=== PATIENT | female | born 1955 | race Caucasian/White ===

== ENCOUNTER 2019-02-20 06:16 | Inpatient (IN) | payer MEDICAID, OTHER ==
[2019-02-20] VITALS (28 sets, daily range): BP systolic 80–122; BP diastolic 28–54
[~2019-02-20] VITALS: Ht 172.7 cm; Wt 84.2 kg
[~2019-02-20 06:16] MED LIST: DOBUTamine/D5W 500mg/250ml premix IV ONE; NORepinephrine 8 MG in NS 250 ML BAG (32 mcg/ml) IV ONE
[2019-02-20 06:49] LABS: BASOPHILS % (AUTO) 0.2 % (0-1); EOSINOPHILS # (AUTO) 0.1 X10'3 (0-0.9); EOSINOPHILS % (AUTO) 1.5 % (0-6); HEMATOCRIT 28.8 % (35.0-45.0); HEMOGLOBIN 9.3 g/dl (12.0-16.0); LYMPHOCYTES # (AUTO) 0.4 X10'3 (1.1-4.8); LYMPHOCYTES % (AUTO) 5.3 % (21-51); MEAN CORPUSCULAR HEMOGLOBIN 27.8 PG (27.0-31.0); MEAN CORPUSCULAR HGB CONC 32.2 g/dL (33.0-36.5); MEAN CORPUSCULAR VOLUME 86.6 FL (78-98); MEAN PLATELET VOLUME 8.9 FL (7.4-10.4); MONOCYTES # (AUTO) 0.7 X10'3 (0-0.9); MONOCYTES % (AUTO) 9.8 % (2-12); NEUTROPHILS # (AUTO) 5.5 X10'3 (1.8-7.7); NEUTROPHILS % (AUTO) 83.2 % (42-75); PLATELET COUNT 114 X10'3 (140-440); RED BLOOD COUNT 3.33 X10'6 (4.20-5.60); RED CELL DISTRIBUTION WIDTH 15.9 % (11.5-14.5); WHITE BLOOD COUNT 6.7 X10'3 (4.5-11.0)
[2019-02-20 06:50] LABS: ABG BASE EXCESS -10.3 mmol/L (-2.0-3.0); ABG HCO3 15.3 mmol/L (22.0-26.0); ABG PCO2 (T) 33.1 mmHg (35.0-45.0); ABG PH (T) 7.284 (7.350-7.450); ABG PO2 (T) 252.3 mmHg (83-108); FCOHb 0.2 % (0.5-1.5); FMetHb 0.3 % (0.3-1.12); FO2Hb 98.5 % (94-100); MINUTE VOLUME 14 L/min; PATIENT TEMPERATURE 37.2; RESPIRATORY RATE 16 b/min; RESPIRATORY RATE (OBSERVED) 19 b/min; TIDAL VOLUME 773 mL; TOTAL HEMOGLOBIN 10.2 G/dl (12.0-16.0)
[2019-02-20 07:12] LABS: PARTIAL THROMBOPLASTIN TIME 51 SECONDS (22-32)
[2019-02-20] MEDS ORDERED: calcium gluconate inj. 1 GM in normal saline 100ml IV soln 100 ML IV ONE (07:15)
[2019-02-20] MEDS ORDERED: sodium bicarbonate (0.9mEq/ml) 44.6 mEq/50ml syringe IV ONE (07:15)
[2019-02-20 07:27] LABS: LACTIC SEPSIS 6.1 MMOL/L (0.4-2.0)
[2019-02-20 07:31] LABS: ALBUMIN 3.5 G/DL (3.4-5.0); ALBUMIN/GLOBULIN RATIO 1.3 (1.1-1.5); ALKALINE PHOSPHATASE 163 IU/L (46-116); ANION GAP 18 (8-16); BILIRUBIN,TOTAL 2.9 MG/DL (0.1-1.0); BLOOD UREA NITROGEN 95 MG/DL (7-18); BUN/CREATININE RATIO 21.7 (6.6-38.0); CHLORIDE 91 MMOL/L (99-107); CREATININE 4.37 MG/DL (0.40-0.90); GLUCOSE 164 MG/DL (70-104); LIPASE 172 U/L (73-393); MAGNESIUM 1.9 MG/DL (1.5-2.4); SODIUM 127 MMOL/L (135-145); TOTAL CARBON DIOXIDE 18.3 MMOL/L (24-32); TOTAL PROTEIN 6.2 G/DL (6.4-8.2); eGFR 10 ML/MIN
--- NOTE | 2019-02-20 07:52 | NUR ---
WAITING PHARMACY FOR BICARB
[2019-02-20 08:18] LABS: NUCLEATED RED BLOOD CELLS 10 /100WBC (0-0); TOTAL CELLS COUNTED 100
[2019-02-20 08:19] LABS: PLATELET ESTIMATE DECREASED
--- NOTE | 2019-02-20 08:19 | NUR ---
DR. CHERY IN TO SEE PT FOR ADMIT. VERBAL ORDERS RECIEVED FOR CANCOMYCIN 1GRAM IV, ZOSYN 3.375MG IV, AND DOBUTAMINE DRIP PER PROTOCOL.
[2019-02-20 08:20] LABS: ANISOCYTOSIS 1+
--- NOTE | 2019-02-20 08:20 | NUR ---
DR. VILLAR BEDSIDE FOR CL NOW.
[2019-02-20] MEDS ORDERED: DOBUTamine-DoBUTrex 500mg/D5W 250 ML IV PRN (08:30)
[2019-02-20] MEDS ORDERED: vancomycin/NS 1 GM ADD-VANTAGE 250 ML IV ONE (08:30)
[2019-02-20 08:32] LABS: ACETAMINOPHEN < 2.0 UG/ML (10-30); ALANINE AMINOTRANSFERASE 3599 U/L (12-78); ASPARTATE AMINO TRANSFERASE 3477 U/L (10-37); CREATINE KINASE 8185 U/L (26-192)
[2019-02-20 08:34] LABS: POTASSIUM 6.3 MMOL/L (3.5-5.1)
[2019-02-20] MEDS ORDERED: piperacillin/tazo 3.375gm/50ml 50 ML IV ONE ×2 (08:40→16:00)
[2019-02-20] MEDS: DOBUTamine-DoBUTrex 500mg/D5W 250 ML IV PRN ×2 (09:23→20:25)
[2019-02-20] MEDS ORDERED: magnesium 4gm in 100ml NS 100 ML IV PRN (09:40)
[2019-02-20] MEDS ORDERED: sodium phosphate inj. 15 MMOL in dextrose 5%-water 150 ML IV PRN (09:40)
[2019-02-20] MEDS ORDERED: morphine 4 MG/ML inj SYRINge IV PRN (09:40)
[2019-02-20] MEDS ORDERED: Neutra Phos packet PO PRN (09:40)
[2019-02-20] MEDS ORDERED: magnesium Cl slow-release 64mg tablet PO PRN (09:40)
[2019-02-20] MEDS ORDERED: magnesium 2GM in 50ml NS 50 ML IV PRN (09:40)
[2019-02-20] MEDS ORDERED: sodium phosphate inj. 30 MMOL in dextrose 5%-water 250 ML IV PRN (09:40)
[2019-02-20] MEDS ORDERED: ketamine 10mg/ml 20ml inj 25 MG in normal saline 100ml IV soln 100.0 ML IV ONE (09:45)
[2019-02-20 09:46] LABS: CLARITY,URINE CLOUDY (Clear); COLOR,URINE YELLOW (Yellow); GLUCOSE, URINE NEGATIVE (Neg); KETONES,URINE TRACE mg/dl (Neg); LEUKOCYTE ESTERASE ,URINE NEGATIVE (Neg); NITRITES, URINE NEGATIVE (Neg); OCCULT BLOOD,URINE LARGE (Neg); PROTEIN,URINE >=300 mg/dl (Neg)
[2019-02-20 09:52] LABS: UA COLLECTION TYPE FOLEY CATH
[2019-02-20 09:53] LABS: SQUAMOUS EPITHELIAL CELL,UR MANY /LPF (FEW)
[2019-02-20] MEDS: normal saline 1000ml 1,000 ML IV SCH (09:53)
[2019-02-20 09:54] LABS: RBC,URINE 20-50 /HPF (0-2)
[2019-02-20 09:55] LABS: HYALINE CASTS 0-3 /LPF (NEGATIVE); TRANSITIONAL EPI CELLS,URINE MANY /HPF
[2019-02-20 09:56] LABS: AMORPHOUS URATES 2+; BACTERIA,URINE 1+ /HPF (Neg); WBC,URINE 0-4 /HPF (0-4)
[2019-02-20] MEDS ORDERED: normal saline 1000ML IV soln IVB ONE ×2 (10:00→12:40)
[2019-02-20] MEDS ORDERED: VANCOmycin 1250MG/NS 250ml Bag 250 ML IV ONE (10:05)
[2019-02-20 10:35] LABS: ABG BASE EXCESS -9.2 mmol/L (-2.0-3.0); ABG HCO3 15.6 mmol/L (22.0-26.0); ABG OXYGEN SATURATION 96.2 % (95-98); ABG PCO2 (T) 30.2 mmHg (35.0-45.0); ABG PH (T) 7.332 (7.350-7.450); ABG PO2 (T) 100.9 mmHg (83-108); FCOHb 0.3 % (0.5-1.5); FMetHb 0.2 % (0.3-1.12); FO2Hb 95.7 % (94-100); MINUTE VOLUME 15 L/min; RESPIRATORY RATE 16 b/min; TOTAL HEMOGLOBIN 9.3 G/dl (12.0-16.0)
[2019-02-20] MEDS: pantoprazole 40 MG vial IV SCH (10:48)
--- NOTE | 2019-02-20 11:03 | NUR ---
PT CHANGED TO HI FLOW NC BY RT AT THIS TIME. 10L SAO2 AT 94%
[2019-02-20] MEDS ORDERED: vancomycin/NS 1 GM ADD-VANTAGE 250 ML IV PRN (11:50)
[2019-02-20] MEDS ORDERED: HYDR-3686 PO ×2 (12:10→12:59)
[2019-02-20] MEDS ORDERED: OMEP-50 PO (12:10)
[2019-02-20] MEDS ORDERED: METH750T3 PO (12:10)
[2019-02-20] MEDS ORDERED: ATOR40TA72 PO (12:10)
[2019-02-20] MEDS ORDERED: DULO60CA65 PO (12:10)
[2019-02-20] MEDS ORDERED: NAPR-996 PO (12:10)
[2019-02-20] MEDS ORDERED: METF-438 PO (12:10)
[2019-02-20] MEDS ORDERED: RANI300T4 PO (12:10)
[2019-02-20] MEDS ORDERED: BUPR-84 PO (12:10)
[2019-02-20] MEDS ORDERED: MULT-955 PO (12:59)
[2019-02-20] MEDS ORDERED: OXYC-150 PO (12:59)
[2019-02-20] MEDS ORDERED: ASPI-611 PO (12:59)
[2019-02-20] MEDS ORDERED: METO-395 PO (12:59)
[2019-02-20] MEDS ORDERED: DOCU-148 PO (12:59)
[2019-02-20] MEDS ORDERED: LIDO700A32 TOP (12:59)
[2019-02-20] MEDS ORDERED: CLOT12CR TOP (12:59)
[2019-02-20] MEDS ORDERED: FURO-150 PO (12:59)
[2019-02-20] MEDS ORDERED: TOPI50TA PO (12:59)
[2019-02-20] MEDS ORDERED: OXYC10TA47 PO (12:59)
--- NOTE | 2019-02-20 13:08 | NUR ---
WRONG PATIENT. PLEASE DISREGARD Addendum: 02/20/19 at 1309 by Anitha TAYLOR RN Amended: Links added.
[2019-02-20] MEDS ORDERED: NORepinephrine 8mg/ 250ml NS 250 ML IV PRN (13:49)
[2019-02-20] MEDS ORDERED: furosemide 40mg/4ml inj IV ONE ×3 (13:50→22:30)
[2019-02-20] MEDS ORDERED: albuterol 2.5 MG/3 ML nebule CONTNEB PRN (13:50)
[2019-02-20] MEDS ORDERED: sodium bicarbonate (8.4%) 1 mEq/ml syringe IV ONE (13:50)
[2019-02-20] MEDS ORDERED: NORepinephrine 8mg/ 250ml NS 250 ML IV ONE (13:53)
[2019-02-20 14:01] LABS: ABG BASE EXCESS -5.9 mmol/L (-2.0-3.0); ABG HCO3 19.9 mmol/L (22.0-26.0); ABG OXYGEN SATURATION 89.9 % (95-98); ABG PCO2 (T) 40.5 mmHg (35.0-45.0); ABG PO2 (T) 66.5 mmHg (83-108); ALLEN'S TEST Positive; FCOHb 0.3 % (0.5-1.5); FLOW 10 L/min; FMetHb 0.3 % (0.3-1.12); FO2Hb 89.4 % (94-100); TOTAL HEMOGLOBIN 9.1 G/dl (12.0-16.0)
[2019-02-20] MEDS: NORepinephrine 8mg/ 250ml NS 250 ML IV SCH (14:19)
[2019-02-20] MEDS ORDERED: sodium bicarbonate (8.4%) inj. 1 MEQ/ML ML IV ONE (14:35)
[2019-02-20] MEDS: ondansetron/PF 4mg/2ml inj IV PRN (14:37)
[2019-02-20] MEDS: methylPREDNISolone sod succ/PF 40mg inj. IV SCH ×2 (14:37→19:46)
[2019-02-20 15:46] LABS: ALBUMIN/GLOBULIN RATIO 1.4 (1.1-1.5); ALKALINE PHOSPHATASE 138 IU/L (46-116); ANION GAP 14 (8-16); BLOOD UREA NITROGEN 90 MG/DL (7-18); BUN/CREATININE RATIO 21.3 (6.6-38.0); CALCIUM 6.4 MG/DL (8.5-10.1); CHLORIDE 96 MMOL/L (99-107); CREATININE 4.23 MG/DL (0.40-0.90); GLUCOSE 106 MG/DL (70-104); POTASSIUM 5.6 MMOL/L (3.5-5.1); SODIUM 131 MMOL/L (135-145); TOTAL CARBON DIOXIDE 21.1 MMOL/L (24-32); TOTAL PROTEIN 5.2 G/DL (6.4-8.2); eGFR 11 ML/MIN
[2019-02-20 15:55] LABS: ALANINE AMINOTRANSFERASE 3028 U/L (12-78)
[2019-02-20 15:56] LABS: ASPARTATE AMINO TRANSFERASE 2619 U/L (10-37)
--- NOTE | 2019-02-20 17:01 | NUR ---
Pt's ring to L-finger sent to MIKE patino with pt's permission.
--- NOTE | 2019-02-20 18:45 | NUR ---
Patient in room ICU 2042. I have received report and had the opportunity to ask questions and assume patient care. Pt received confused. Reoriented. Rhythm is sinus HR 74 Dobutamine drip is infusing at 10mcg. BP supported with Levophed drip. medication titrated up at this time. CVP 17. Pt is on oxygen at 10 liters NC high flow.Burden drains dark yellow urine.
--- NOTE | 2019-02-20 19:30 | NUR ---
Aerobic Blood Cultures positive for G+ cocci in pairs/chains. Elli Lorenzo updated. Pt is receiving vancomycin.
[2019-02-20] MEDS: cefepime 1GM in D5W 50mL 50 ML IV SCH (19:41)
[2019-02-20] MEDS: lactobacillus rhamnosus 10,000 MMU CELLS/CAPSULE PO SCH (20:00)
--- NOTE | 2019-02-20 23:00 | NUR ---
Right IJ central line found pulled. Pt with fingers around tubing. Sutures remain intact to device & skin however line is clearly out. Bleeding noted, line D/C'd intact. Dressing applied to right neck. Elli Lorenzo aware & at bedside. # 18G peripheral IV line started in left AC. Left neck saline lock accessed for Levophed, line with immediate blood return.
[2019-02-21] VITALS (24 sets, daily range): BP systolic 101–125; BP diastolic 44–59
[2019-02-21] MEDS: normal saline 1000ml 1,000 ML IV SCH ×2 (01:04→16:01)
[2019-02-21] MEDS: NORepinephrine 8mg/ 250ml NS 250 ML IV SCH ×2 (01:22→16:00)
[2019-02-21] MEDS: methylPREDNISolone sod succ/PF 40mg inj. IV SCH ×4 (01:24→19:57)
[2019-02-21 02:29] LABS: BASOPHILS % (AUTO) 0 % (0-1); EOSINOPHILS % (AUTO) 0.1 % (0-6); HEMATOCRIT 25.2 % (35.0-45.0); HEMOGLOBIN 8.2 g/dl (12.0-16.0); LYMPHOCYTES # (AUTO) 0.1 X10'3 (1.1-4.8); LYMPHOCYTES % (AUTO) 2.6 % (21-51); MEAN CORPUSCULAR HEMOGLOBIN 27.5 PG (27.0-31.0); MEAN CORPUSCULAR HGB CONC 32.5 g/dL (33.0-36.5); MEAN CORPUSCULAR VOLUME 84.5 FL (78-98); MEAN PLATELET VOLUME 8.5 FL (7.4-10.4); MONOCYTES # (AUTO) 0.2 X10'3 (0-0.9); MONOCYTES % (AUTO) 3.6 % (2-12); NEUTROPHILS # (AUTO) 4.1 X10'3 (1.8-7.7); NEUTROPHILS % (AUTO) 93.7 % (42-75); PLATELET COUNT 90 X10'3 (140-440); RED BLOOD COUNT 2.98 X10'6 (4.20-5.60); RED CELL DISTRIBUTION WIDTH 15.6 % (11.5-14.5); WHITE BLOOD COUNT 4.4 X10'3 (4.5-11.0)
[2019-02-21 02:39] LABS: PARTIAL THROMBOPLASTIN TIME 56 SECONDS (22-32)
[2019-02-21 02:51] LABS: ALANINE AMINOTRANSFERASE 2689 U/L (12-78); ALBUMIN 2.9 G/DL (3.4-5.0); ALBUMIN/GLOBULIN RATIO 1.3 (1.1-1.5); ALKALINE PHOSPHATASE 133 IU/L (46-116); ANION GAP 13 (8-16); ASPARTATE AMINO TRANSFERASE 2121 U/L (10-37); BILIRUBIN,TOTAL 3.7 MG/DL (0.1-1.0); BLOOD UREA NITROGEN 96 MG/DL (7-18); BUN/CREATININE RATIO 22.9 (6.6-38.0); CHLORIDE 98 MMOL/L (99-107); CREATINE KINASE 4911 U/L (26-192); GLUCOSE 137 MG/DL (70-104); MAGNESIUM 1.6 MG/DL (1.5-2.4); PHOSPHORUS 5.6 MG/DL (2.3-4.5); POTASSIUM 5.5 MMOL/L (3.5-5.1); SODIUM 133 MMOL/L (135-145); TOTAL CARBON DIOXIDE 22.2 MMOL/L (24-32); TOTAL PROTEIN 5.2 G/DL (6.4-8.2); VANCOMYCIN,RANDOM 8.7 UG/ML; eGFR 11 ML/MIN
[2019-02-21 02:55] LABS: BANDS% (MANUAL) 24 % (0-10); ELLIPTOCYTES FEW; HYPOCHROMASIA 1+; LYMPHOCYTES % (MANUAL) 2 % (21-51); MONOCYTES % (MANUAL) 2 % (2-12); NEUTROPHILS % (MANUAL) 69 % (42-75); NUCLEATED RED BLOOD CELLS 1 /100WBC (0-0); PLATELET ESTIMATE DECREASED; REACTIVE LYMPHOCYTES % 2 % (0-0); TOTAL CELLS COUNTED 100
--- NOTE | 2019-02-21 02:55 | NUR ---
Abnormal lab results called to Elli Lorenzo. No new orders at this time.
[2019-02-21 02:56] LABS: ROULEAUX 1+
[2019-02-21] MEDS: VANCOMYCIN LEVEL IV SCH (03:00)
[2019-02-21] MEDS: DOBUTamine-DoBUTrex 500mg/D5W 250 ML IV PRN ×2 (04:57→15:59)
--- NOTE | 2019-02-21 06:30 | NUR ---
Patient in room ICU 2042. I have received report from taran and had the opportunity to ask questions and assume patient care.
[2019-02-21] MEDS ORDERED: vancomycin/NS 1 GM ADD-VANTAGE 250 ML IV ONE (06:35)
--- NOTE | 2019-02-21 06:35 | NUR ---
Problems reprioritized. Patient report given, questions answered & plan of care reviewed. Addendum: 02/21/19 at 1514 by Mariana Mora RN Patient in room ICU 2042. I have received report from taran and had the opportunity to ask questions and assume patient care.
[2019-02-21] MEDS: cefepime 1GM in D5W 50mL 50 ML IV SCH ×2 (08:16→19:57)
[2019-02-21] MEDS: pantoprazole 40 MG vial IV SCH (08:19)
[2019-02-21] MEDS: lactobacillus rhamnosus 10,000 MMU CELLS/CAPSULE PO SCH (08:20)
[2019-02-21] MEDS ORDERED: glucagon, human recombinant 1mg kit SUBCUT PRN (08:35)
[2019-02-21] MEDS ORDERED: dextrose ORAL solution 15 GM/59 ML bottle PO PRN ×2 (08:35)
[2019-02-21] MEDS ORDERED: dextrose 50%-water 50ml dispensing syringe IV PRN ×2 (08:35)
--- NOTE | 2019-02-21 09:00 | NUR ---
confused as to place, time, knows medical history. update to and dil by phone
[2019-02-21] MEDS ORDERED: TERB30CR22 TP (10:53)
[2019-02-21] MEDS: insulin Lispro (HumaLOG) vial - multi-dose SQ SCH ×2 (11:01→15:33)
--- NOTE | 2019-02-21 14:07 | NUR ---
Nutrition consult (02/21):Pt is admitted to the unit with dx of TED,cardiogenic shock, and liver failure. According to physical hx, pt has a history of Afib,DM2 and HTN. In view of pt's TED, nutrition education is not needed at this time. Will follow per protocol for any additional needs. Recommendation: 1.Continue renal/carb controlled diet 2.Weekly wt Addendum: 02/21/19 at [address] Amended: Links added. Addendum: 02/21/19 at [address] SMITA agree with note
[2019-02-21] MEDS ORDERED: OXYC-150 PO ×2 (14:58→15:00)
--- NOTE | 2019-02-21 15:14 | NUR ---
picc line in. pt dangled with pt- tolerated fair.
[2019-02-21] MEDS: levoTHYROXINE 25mcg tablet PO SCH (15:36)
--- NOTE | 2019-02-21 18:05 | NUR ---
iv lines changed. pt more coherent now.
--- NOTE | 2019-02-21 18:20 | NUR ---
Patient in room ICU 2042. I have received report and had the opportunity to ask questions and assume patient care. Pt is awake & alert, confused. Currently on 3 liters oxygen via NC saturating 96%. Levophed at 2mcg. infusing via PICC line left upper arm. Safety precautions observed bilateral soft wrist restraints secure. No distress at this time.
--- NOTE | 2019-02-21 19:30 | NUR ---
Pt refused diner tray. Appetite is poor.
[2019-02-21] MEDS: insulin glargine (Lantus) pen - multi-dose SQ SCH (21:37)
[2019-02-22] VITALS (24 sets, daily range): BP systolic 112–143; BP diastolic 48–69
[2019-02-22] MEDS: ipratropium/albuterol 3ml nebule NEB PRN (01:27)
--- NOTE | 2019-02-22 01:30 | NUR ---
Pt removed nasal cannula. Saturation in 80's on room air. Pt yelling she can not breathe. Placed on oxygen mask at 6Liters with saturation 99%. Respiratory therapist notified for breathing treatment. Lungs with coarse breath sounds. Loose non productive cough.
[2019-02-22] MEDS: DOBUTamine-DoBUTrex 500mg/D5W 250 ML IV PRN ×3 (01:46→21:31)
[2019-02-22] MEDS: methylPREDNISolone sod succ/PF 40mg inj. IV SCH ×4 (02:12→20:16)
[2019-02-22] MEDS: VANCOMYCIN LEVEL IV SCH ×2 (02:16→21:33)
[2019-02-22 02:23] LABS: BASOPHILS % (AUTO) 0.2 % (0-1); EOSINOPHILS % (AUTO) 0.1 % (0-6); HEMATOCRIT 24.8 % (35.0-45.0); HEMOGLOBIN 8.1 g/dl (12.0-16.0); LYMPHOCYTES # (AUTO) 0.2 X10'3 (1.1-4.8); LYMPHOCYTES % (AUTO) 2.5 % (21-51); MEAN CORPUSCULAR HEMOGLOBIN 27.4 PG (27.0-31.0); MEAN CORPUSCULAR HGB CONC 32.8 g/dL (33.0-36.5); MEAN CORPUSCULAR VOLUME 83.6 FL (78-98); MEAN PLATELET VOLUME 8.2 FL (7.4-10.4); MONOCYTES # (AUTO) 0.2 X10'3 (0-0.9); MONOCYTES % (AUTO) 2.9 % (2-12); NEUTROPHILS % (AUTO) 94.3 % (42-75); PLATELET COUNT 81 X10'3 (140-440); RED BLOOD COUNT 2.97 X10'6 (4.20-5.60); RED CELL DISTRIBUTION WIDTH 15.6 % (11.5-14.5); WHITE BLOOD COUNT 6.4 X10'3 (4.5-11.0)
[2019-02-22 02:41] LABS: PARTIAL THROMBOPLASTIN TIME 49 SECONDS (22-32)
--- NOTE | 2019-02-22 03:00 | NUR ---
O2 saturation 99%. Pt now on high flow nasal cannula at 6L. No distress.
[2019-02-22 03:04] LABS: ALBUMIN 2.6 G/DL (3.4-5.0); ALKALINE PHOSPHATASE 121 IU/L (46-116); ANION GAP 7 (8-16); BILIRUBIN,TOTAL 4.1 MG/DL (0.1-1.0); BLOOD UREA NITROGEN 90 MG/DL (7-18); BUN/CREATININE RATIO 28.8 (6.6-38.0); CALCIUM 7.6 MG/DL (8.5-10.1); CHLORIDE 102 MMOL/L (99-107); CREATININE 3.13 MG/DL (0.40-0.90); GLUCOSE 137 MG/DL (70-104); MAGNESIUM 1.6 MG/DL (1.5-2.4); POTASSIUM 3.1 MMOL/L (3.5-5.1); SODIUM 138 MMOL/L (135-145); TOTAL CARBON DIOXIDE 28.7 MMOL/L (24-32); TOTAL PROTEIN 5.2 G/DL (6.4-8.2); VANCOMYCIN,RANDOM 12.7 UG/ML; eGFR 15 ML/MIN
[2019-02-22 03:16] LABS: ALANINE AMINOTRANSFERASE 2030 U/L (12-78); ASPARTATE AMINO TRANSFERASE 1049 U/L (10-37)
--- NOTE | 2019-02-22 03:34 | NUR ---
Abnormal labs called to Elli Lorenzo. Awaiting further orders. K+ 3.1 BUN/Creatinine are trending down. Platelets 81.
[2019-02-22] MEDS ORDERED: potassium Cl 10 mEq/100mL bag IV ONE (03:40)
--- NOTE | 2019-02-22 06:35 | NUR ---
Problems reprioritized. Patient report given, questions answered & plan of care reviewed.
--- NOTE | 2019-02-22 06:40 | NUR ---
Patient in room ICU 2042. I have received report from Denise. KRISTEN and had the opportunity to ask questions and assume patient care.
[2019-02-22] MEDS ORDERED: vancomycin/NS 1 GM ADD-VANTAGE 250 ML IV ONE (07:00)
[2019-02-22] MEDS: morphine 2 MG/ML inj. syringe IV PRN (08:31)
[2019-02-22] MEDS: levoTHYROXINE 25mcg tablet PO SCH (08:35)
[2019-02-22] MEDS: pantoprazole 40 MG vial IV SCH (08:50)
[2019-02-22] MEDS: insulin Lispro (HumaLOG) vial - multi-dose SQ SCH ×2 (09:23→16:36)
[2019-02-22] MEDS: cefepime 1GM in D5W 50mL 50 ML IV SCH ×2 (10:52→20:16)
[2019-02-22] MEDS ORDERED: oxyCODONE/APAP 10/325mg tablet PO ONE (14:25)
--- NOTE | 2019-02-22 15:09 | NUR ---
restraints removed. Pt sitting up to chair, alert and oriented, speaking clearly, wide awake, family at bedside.
--- NOTE | 2019-02-22 15:53 | NUR ---
pts K 3.1 around 0200 this AM. A one time dose of Potassium 10 mEq IV given @ 0356. RN rechecked K this afternoon and level was 2.6. No PRNs ordered. Cristel Kauffman notified and ordered for K20 mEq to be given once. Order placed, will administer.
[2019-02-22] MEDS ORDERED: potassium Cl 20 mEq/100mL bag IV ONE (15:55)
--- NOTE | 2019-02-22 18:15 | NUR ---
Patient in room ICU 2042. I have received report from had the opportunity to ask questions and assume patient care. Pt received awake & alert sitting up in chair with visitors at bedside. No distress.
--- NOTE | 2019-02-22 19:15 | NUR ---
BS 149, dinner now started. Pt declined meal earlier.
[2019-02-22] MEDS ORDERED: hydrOXYzine 25 MG tablet PO PRN (19:55)
[2019-02-22] MEDS: oxyCODONE/APAP 10/325mg tablet PO SCH (20:15)
[2019-02-22] MEDS: lactobacillus rhamnosus 10,000 MMU CELLS/CAPSULE PO SCH (20:16)
[2019-02-22] MEDS: insulin glargine (Lantus) pen - multi-dose SQ SCH (20:32)
--- NOTE | 2019-02-22 21:12 | NUR ---
K+2.8 result called to Medhat. Awaiting orders. Rhythm is sinus without ectopy.
--- NOTE | 2019-02-22 21:30 | NUR ---
Assisted back to bed. Pt is able to stand, bear weight and take steps. CHG bath/Burden care rendered. Bed linen / gown changed.
[2019-02-22] MEDS: famotidine 20mg tablet PO SCH (21:31)
[2019-02-22] MEDS: potassium Cl 20mEq/100mL bag 100 ML IV PRN (21:40)
[2019-02-22] MEDS: buPROPion SR 150mg tablet PO SCH (21:47)
--- NOTE | 2019-02-22 23:00 | NUR ---
White/pale yellow tissue noted on pt.'s tongue right side & under tongue. Denies pain to these areas. Elli Lorenzo at bedside to assess.
[2019-02-23] VITALS (16 sets, daily range): BP systolic 122–143; BP diastolic 57–77
[2019-02-23] MEDS: methylPREDNISolone sod succ/PF 40mg inj. IV SCH ×4 (01:26→21:01)
[2019-02-23] MEDS: normal saline 1000ml 1,000 ML IV SCH (01:28)
[2019-02-23 01:45] LABS: PARTIAL THROMBOPLASTIN TIME 40 SECONDS (22-32)
[2019-02-23 01:49] LABS: BASOPHILS % (AUTO) 0.4 % (0-1); EOSINOPHILS % (AUTO) 0 % (0-6); HEMATOCRIT 26.6 % (35.0-45.0); HEMOGLOBIN 8.7 g/dl (12.0-16.0); LYMPHOCYTES # (AUTO) 0.2 X10'3 (1.1-4.8); LYMPHOCYTES % (AUTO) 2.5 % (21-51); MEAN CORPUSCULAR HEMOGLOBIN 27.4 PG (27.0-31.0); MEAN CORPUSCULAR HGB CONC 32.7 g/dL (33.0-36.5); MEAN CORPUSCULAR VOLUME 83.9 FL (78-98); MONOCYTES # (AUTO) 0.4 X10'3 (0-0.9); MONOCYTES % (AUTO) 4.1 % (2-12); NEUTROPHILS # (AUTO) 8.6 X10'3 (1.8-7.7); PLATELET COUNT 81 X10'3 (140-440); RED BLOOD COUNT 3.17 X10'6 (4.20-5.60); RED CELL DISTRIBUTION WIDTH 16.3 % (11.5-14.5); WHITE BLOOD COUNT 9.3 X10'3 (4.5-11.0)
[2019-02-23 01:51] LABS: ALBUMIN 2.6 G/DL (3.4-5.0); ALKALINE PHOSPHATASE 124 IU/L (46-116); ANION GAP 6 (8-16); ASPARTATE AMINO TRANSFERASE 461 U/L (10-37); BILIRUBIN,TOTAL 3.8 MG/DL (0.1-1.0); BLOOD UREA NITROGEN 72 MG/DL (7-18); BUN/CREATININE RATIO 39.1 (6.6-38.0); CALCIUM 8.2 MG/DL (8.5-10.1); CHLORIDE 105 MMOL/L (99-107); CREATININE 1.84 MG/DL (0.40-0.90); GLUCOSE 164 MG/DL (70-104); MAGNESIUM 1.6 MG/DL (1.5-2.4); PHOSPHORUS 2.7 MG/DL (2.3-4.5); SODIUM 141 MMOL/L (135-145); TOTAL CARBON DIOXIDE 30.5 MMOL/L (24-32); TOTAL PROTEIN 5.3 G/DL (6.4-8.2); VANCOMYCIN,RANDOM 14.1 UG/ML; eGFR 28 ML/MIN
[2019-02-23 01:52] LABS: ALANINE AMINOTRANSFERASE 1663 U/L (12-78)
[2019-02-23] MEDS: potassium Cl 20mEq/100mL bag 100 ML IV PRN ×3 (02:59→09:22)
[2019-02-23] MEDS: morphine 2 MG/ML inj. syringe IV PRN (04:42)
--- NOTE | 2019-02-23 04:48 | NUR ---
Medicated for burning pain in tongue & down throat. Pain is 6/10 on pain scale.
[2019-02-23] MEDS ORDERED: vancomycin/NS 1 GM ADD-VANTAGE 250 ML IV ONE (07:15)
[2019-02-23] MEDS ORDERED: levoFLOXACIN-Levaquin 250mg/D5 50 ML IV SCH (08:00)
[2019-02-23] MEDS: levoTHYROXINE 25mcg tablet PO SCH (09:03)
[2019-02-23] MEDS: pantoprazole 40 MG vial IV SCH (09:03)
[2019-02-23] MEDS: buPROPion SR 150mg tablet PO SCH ×2 (09:04→21:01)
[2019-02-23] MEDS: duloxetine 30mg CAPSULE.DR PO SCH (09:04)
[2019-02-23] MEDS: oxyCODONE/APAP 10/325mg tablet PO SCH ×3 (09:04→21:02)
[2019-02-23] MEDS: lactobacillus rhamnosus 10,000 MMU CELLS/CAPSULE PO SCH ×2 (09:04→21:02)
[2019-02-23] MEDS: docusate sod 100mg capsule PO SCH (09:05)
[2019-02-23] MEDS: multivitamins, therapeutics tablet PO SCH (09:05)
[2019-02-23] MEDS: DOBUTamine-DoBUTrex 500mg/D5W 250 ML IV SCH ×2 (09:06→21:04)
[2019-02-23] MEDS: insulin Lispro (HumaLOG) vial - multi-dose SQ SCH ×3 (09:54→19:33)
--- NOTE | 2019-02-23 14:14 | NUR ---
Report called to Dora RN
--- NOTE | 2019-02-23 14:14 | NUR ---
Patient in room ICU 2042. I have received report from KRISTEN Thomas ICU and had the opportunity to ask questions and assume patient care.
--- NOTE | 2019-02-23 15:10 | NUR ---
Transferred patient to room 3013 via wheelchair and on monitor. Receiving nurse, Dora at bedside.
--- NOTE | 2019-02-23 17:29 | NUR ---
Pt discharged. IV d/c'd, tele removed, all belongings sent with pt. Wheeled down by staff, accompanied by significant other. Left in private vehicle.
--- NOTE | 2019-02-23 18:45 | NUR ---
Problems reprioritized. Patient report given, questions answered & plan of care reviewed with KRISTEN Evans.
[2019-02-23] MEDS: ipratropium/albuterol 3ml nebule NEB PRN (19:41)
[2019-02-23] MEDS: famotidine 20mg tablet PO SCH (21:02)
[2019-02-23] MEDS: insulin glargine (Lantus) pen - multi-dose SQ SCH (22:03)
[2019-02-24] VITALS (9 sets, daily range): BP systolic 105–141; BP diastolic 57–79
[2019-02-24] MEDS: methylPREDNISolone sod succ/PF 40mg inj. IV SCH ×4 (01:06→20:45)
[2019-02-24] MEDS: VANCOMYCIN LEVEL IV SCH (03:00)
[2019-02-24 04:21] LABS: BASOPHILS % (AUTO) 0.2 % (0-1); EOSINOPHILS % (AUTO) 0 % (0-6); HEMATOCRIT 27.2 % (35.0-45.0); HEMOGLOBIN 8.7 g/dl (12.0-16.0); LYMPHOCYTES # (AUTO) 0.2 X10'3 (1.1-4.8); LYMPHOCYTES % (AUTO) 1.8 % (21-51); MEAN CORPUSCULAR HEMOGLOBIN 27.2 PG (27.0-31.0); MEAN CORPUSCULAR HGB CONC 32.2 g/dL (33.0-36.5); MEAN CORPUSCULAR VOLUME 84.3 FL (78-98); MONOCYTES # (AUTO) 0.4 X10'3 (0-0.9); MONOCYTES % (AUTO) 3.3 % (2-12); NEUTROPHILS # (AUTO) 10.4 X10'3 (1.8-7.7); NEUTROPHILS % (AUTO) 94.7 % (42-75); PLATELET COUNT 80 X10'3 (140-440); RED BLOOD COUNT 3.22 X10'6 (4.20-5.60)
[2019-02-24 04:29] LABS: PARTIAL THROMBOPLASTIN TIME 35 SECONDS (22-32)
[2019-02-24 04:36] LABS: ALBUMIN 2.7 G/DL (3.4-5.0); ALBUMIN/GLOBULIN RATIO 1.1 (1.1-1.5); ALKALINE PHOSPHATASE 123 IU/L (46-116); ANION GAP 5 (8-16); ASPARTATE AMINO TRANSFERASE 212 U/L (10-37); BLOOD UREA NITROGEN 56 MG/DL (7-18); BUN/CREATININE RATIO 42.1 (6.6-38.0); CALCIUM 8.6 MG/DL (8.5-10.1); CHLORIDE 106 MMOL/L (99-107); CREATININE 1.33 MG/DL (0.40-0.90); GLUCOSE 144 MG/DL (70-104); MAGNESIUM 1.6 MG/DL (1.5-2.4); PHOSPHORUS 2.3 MG/DL (2.3-4.5); POTASSIUM 3.8 MMOL/L (3.5-5.1); SODIUM 142 MMOL/L (135-145); TOTAL CARBON DIOXIDE 30.8 MMOL/L (24-32); TOTAL PROTEIN 5.2 G/DL (6.4-8.2); VANCOMYCIN,RANDOM 13.6 UG/ML; eGFR 40 ML/MIN
[2019-02-24 04:46] LABS: ALANINE AMINOTRANSFERASE 1265 U/L (12-78)
--- NOTE | 2019-02-24 06:15 | NUR ---
Patient in room PCU 3013. I have received report from KRISTEN Evans and had the opportunity to ask questions and assume patient care.
[2019-02-24] MEDS: levoTHYROXINE 25mcg tablet PO SCH (07:13)
[2019-02-24] MEDS: pantoprazole 40mg Tablet.DR PO SCH (07:13)
[2019-02-24] MEDS: duloxetine 30mg CAPSULE.DR PO SCH (07:14)
[2019-02-24] MEDS: docusate sod 100mg capsule PO SCH (07:14)
[2019-02-24] MEDS: lactobacillus rhamnosus 10,000 MMU CELLS/CAPSULE PO SCH ×2 (07:14→20:43)
[2019-02-24] MEDS: multivitamins, therapeutics tablet PO SCH (07:15)
[2019-02-24] MEDS: buPROPion SR 150mg tablet PO SCH ×2 (07:15→20:43)
[2019-02-24] MEDS: oxyCODONE/APAP 10/325mg tablet PO SCH ×3 (07:15→20:43)
[2019-02-24] MEDS: methylnaltrexone br 12mg/0.6ml inj***SubQ only SQ SCH (07:15)
[2019-02-24] MEDS ORDERED: vancomycin/NS 1 GM ADD-VANTAGE 250 ML IV SCH (08:00)
[2019-02-24] MEDS: insulin Lispro (HumaLOG) vial - multi-dose SQ SCH ×3 (09:43→19:49)
--- NOTE | 2019-02-24 11:30 | NUR ---
Patient in room PCU 3013. I have received report from Neha and had the opportunity to ask questions and assume patient care.
--- NOTE | 2019-02-24 11:37 | NUR ---
Problems reprioritized. Patient report given, questions answered & plan of care reviewed with KRISTEN Rnedon.
[2019-02-24] MEDS: levoFLOXACIN-Levaquin 500mg/D5 100 ML IV SCH (12:13)
--- NOTE | 2019-02-24 12:29 | NUR ---
[place] documentation: I have reviewed and agree with all interventions, assessments performed and documented by Neha PETERSON. [place] Medication Administration: For this medication-pass time frame, all medication were reviewed, dispensed, administered and documented per hospital policy by Neha PETERSON.
--- NOTE | 2019-02-24 14:41 | NUR ---
reassessment: Pt PO 0-25% vs refusing meals past 4 days since admit. AOx1; pleasantly confused per EMR. Dramatic improvement in chem panel w/ ~4900ml negative fluid balance since admit per MD note. Creatine kinase down to 4911 from 8185. No BM yet this admit receiving colace and relistor. Nepro TIDWM added for additional protein/kcal needs on renal/carb controlled diet w/ TED DX. Will monitor for ONS acceptance and additional nutrition needs as ALOC improves. Recommendation: 1. Continue renal/carb controlled diet; encourage PO w/ ALOC 2. Nepro TIDWM; pending MD verification prior to sending on trays 3. Weekly wt Addendum: 02/24/19 at [address] Amended: Links added.
[2019-02-24] MEDS: NUT.TX.IMP.RENAL FXN,LAC-REDUC (Nepro) 237 ML VANILLA PO SCH (18:00)
--- NOTE | 2019-02-24 18:43 | NUR ---
Problems reprioritized. Patient report given, questions answered & plan of care reviewed with Deepika.
[2019-02-24] MEDS: famotidine 20mg tablet PO SCH (20:40)
[2019-02-24] MEDS: insulin glargine (Lantus) pen - multi-dose SQ SCH (21:32)
[2019-02-24] MEDS: magnesium hydroxide 30ml (MOM) UD suspension PO PRN (23:43)
[2019-02-25] VITALS (7 sets, daily range): BP systolic 118–126; BP diastolic 71–81
[2019-02-25] MEDS: methylPREDNISolone sod succ/PF 40mg inj. IV SCH ×4 (01:11→19:57)
[2019-02-25] MEDS: normal saline 1000ml 1,000 ML IV SCH (01:13)
[2019-02-25] MEDS: morphine 2 MG/ML inj. syringe IV PRN (03:57)
[2019-02-25 05:09] LABS: BASOPHILS % (AUTO) 0 % (0-1); EOSINOPHILS % (AUTO) 0 % (0-6); HEMATOCRIT 28.1 % (35.0-45.0); LYMPHOCYTES # (AUTO) 0.3 X10'3 (1.1-4.8); MEAN CORPUSCULAR HEMOGLOBIN 26.9 PG (27.0-31.0); MEAN CORPUSCULAR HGB CONC 31.9 g/dL (33.0-36.5); MEAN CORPUSCULAR VOLUME 84.1 FL (78-98); MEAN PLATELET VOLUME 8.1 FL (7.4-10.4); MONOCYTES # (AUTO) 0.8 X10'3 (0-0.9); PARTIAL THROMBOPLASTIN TIME 33 SECONDS (22-32); PLATELET COUNT 85 X10'3 (140-440); RED BLOOD COUNT 3.34 X10'6 (4.20-5.60); RED CELL DISTRIBUTION WIDTH 16.2 % (11.5-14.5); WHITE BLOOD COUNT 16.1 X10'3 (4.5-11.0)
--- NOTE | 2019-02-25 05:31 | NUR ---
Patient in room PCU 3013. I have received report from KRISTEN Rendon and had the opportunity to ask questions and assume patient care.
--- NOTE | 2019-02-25 06:10 | NUR ---
Problems reprioritized. Patient report given, questions answered & plan of care reviewed with KRISTEN Rendon.
--- NOTE | 2019-02-25 06:25 | NUR ---
Patient in room PCU 3013. I have received report from Deepika and had the opportunity to ask questions and assume patient care.
[2019-02-25 06:40] LABS: ALANINE AMINOTRANSFERASE 984 U/L (12-78); ALBUMIN 2.7 G/DL (3.4-5.0); ALBUMIN/GLOBULIN RATIO 0.9 (1.1-1.5); ALKALINE PHOSPHATASE 157 IU/L (46-116); ANION GAP 9 (8-16); ASPARTATE AMINO TRANSFERASE 127 U/L (10-37); BILIRUBIN,TOTAL 2.5 MG/DL (0.1-1.0); BLOOD UREA NITROGEN 47 MG/DL (7-18); BUN/CREATININE RATIO 40.9 (6.6-38.0); CALCIUM 8.5 MG/DL (8.5-10.1); CHLORIDE 106 MMOL/L (99-107); CREATININE 1.15 MG/DL (0.40-0.90); GLUCOSE 109 MG/DL (70-104); MAGNESIUM 1.6 MG/DL (1.5-2.4); PHOSPHORUS 2.3 MG/DL (2.3-4.5); POTASSIUM 4.4 MMOL/L (3.5-5.1); SODIUM 144 MMOL/L (135-145); TOTAL CARBON DIOXIDE 28.8 MMOL/L (24-32); TOTAL PROTEIN 5.6 G/DL (6.4-8.2); eGFR 48 ML/MIN
[2019-02-25] MEDS: NUT.TX.IMP.RENAL FXN,LAC-REDUC (Nepro) 237 ML VANILLA PO SCH ×3 (08:00→18:00)
--- NOTE | 2019-02-25 08:00 | NUR ---
Patient became dyspneic/anxious, daughter at bedside. RR 22, Sp02 89% on 7/L via NC. IV lasix and IV morphine administered with effective results. Patient is sating between 90-94% on 7/L via NC. MD is aware and was at bedside when this occured. MD stated to try and keep saturations between 90-92% and order PT for eval and tx. Will continue to monitor closely. Addendum: 02/25/19 at 1142 by Julieta Romero RN Wrong patient, charted incorrectly under the wrong patient.
[2019-02-25] MEDS: magnesium hydroxide 30ml (MOM) UD suspension PO PRN (08:35)
[2019-02-25] MEDS: docusate sod 100mg capsule PO SCH (08:35)
[2019-02-25] MEDS: lactobacillus rhamnosus 10,000 MMU CELLS/CAPSULE PO SCH ×2 (08:35→19:56)
[2019-02-25] MEDS: multivitamins, therapeutics tablet PO SCH (08:35)
[2019-02-25] MEDS: levoFLOXACIN-Levaquin 500mg/D5 100 ML IV SCH (08:36)
[2019-02-25] MEDS: duloxetine 30mg CAPSULE.DR PO SCH (08:36)
[2019-02-25] MEDS: pantoprazole 40mg Tablet.DR PO SCH (08:36)
[2019-02-25] MEDS: buPROPion SR 150mg tablet PO SCH ×2 (08:36→19:57)
[2019-02-25] MEDS: oxyCODONE/APAP 10/325mg tablet PO SCH ×3 (08:51→19:57)
[2019-02-25] MEDS: levoTHYROXINE 25mcg tablet PO SCH (08:52)
--- NOTE | 2019-02-25 18:00 | NUR ---
Patient in room PCU 3010. I have received report from Cierra PETERSON and had the opportunity to ask questions and assume patient care.
--- NOTE | 2019-02-25 18:07 | NUR ---
Patient in room U 3010. I have received report from Mireille and had the opportunity to ask questions and assume patient care. Addendum: 02/25/19 at 1824 by Julieta Romero RN Report given to akua
[2019-02-25] MEDS: famotidine 20mg tablet PO SCH (20:05)
[2019-02-25] MEDS: polyethylene glycol 3350 17gm powd pack PO SCH (20:39)
[2019-02-25] MEDS: insulin glargine (Lantus) pen - multi-dose SQ SCH (21:51)
[2019-02-26] VITALS (11 sets, daily range): BP systolic 122–138; BP diastolic 60–79
[2019-02-26] MEDS: methylPREDNISolone sod succ/PF 40mg inj. IV SCH ×4 (01:39→20:46)
[2019-02-26 02:36] LABS: BASOPHILS # (AUTO) 0.1 X10'3 (0-0.2); BASOPHILS % (AUTO) 0.4 % (0-1); EOSINOPHILS % (AUTO) 0 % (0-6); HEMATOCRIT 30.4 % (35.0-45.0); HEMOGLOBIN 9.6 g/dl (12.0-16.0); LYMPHOCYTES # (AUTO) 0.4 X10'3 (1.1-4.8); LYMPHOCYTES % (AUTO) 2.4 % (21-51); MEAN CORPUSCULAR HEMOGLOBIN 26.5 PG (27.0-31.0); MEAN CORPUSCULAR HGB CONC 31.4 g/dL (33.0-36.5); MEAN CORPUSCULAR VOLUME 84.4 FL (78-98); MEAN PLATELET VOLUME 8.8 FL (7.4-10.4); MONOCYTES # (AUTO) 0.8 X10'3 (0-0.9); MONOCYTES % (AUTO) 5.7 % (2-12); NEUTROPHILS # (AUTO) 13.3 X10'3 (1.8-7.7); NEUTROPHILS % (AUTO) 91.5 % (42-75); PLATELET COUNT 102 X10'3 (140-440); RED CELL DISTRIBUTION WIDTH 16.7 % (11.5-14.5); WHITE BLOOD COUNT 14.6 X10'3 (4.5-11.0)
[2019-02-26 02:46] LABS: PARTIAL THROMBOPLASTIN TIME 33 SECONDS (22-32)
[2019-02-26 02:56] LABS: ALANINE AMINOTRANSFERASE 892 U/L (12-78); ALBUMIN 2.9 G/DL (3.4-5.0); ALKALINE PHOSPHATASE 164 IU/L (46-116); ANION GAP 7 (8-16); ASPARTATE AMINO TRANSFERASE 112 U/L (10-37); BILIRUBIN,TOTAL 3.9 MG/DL (0.1-1.0); BLOOD UREA NITROGEN 59 MG/DL (7-18); BUN/CREATININE RATIO 42.8 (6.6-38.0); CALCIUM 8.8 MG/DL (8.5-10.1); CHLORIDE 103 MMOL/L (99-107); CREATININE 1.38 MG/DL (0.40-0.90); GLUCOSE 147 MG/DL (70-104); MAGNESIUM 1.9 MG/DL (1.5-2.4); PHOSPHORUS 4.2 MG/DL (2.3-4.5); POTASSIUM 5.3 MMOL/L (3.5-5.1); SODIUM 138 MMOL/L (135-145); TOTAL CARBON DIOXIDE 27.6 MMOL/L (24-32); TOTAL PROTEIN 5.9 G/DL (6.4-8.2); eGFR 39 ML/MIN
--- NOTE | 2019-02-26 04:54 | NUR ---
END NOC NOTE Patient has slept well tonight, moves/repositions well in bed independently. Miralax was given tonight, no results. Family was at the bedside at the beginning of shift wanting more information about placement to a SNF, the voice their concern about the distance from [facility]. Remained off oxygen all shift, saturations within normal limits this shift. Will continue to monitor.
--- NOTE | 2019-02-26 06:12 | NUR ---
Problems reprioritized. Patient report given, questions answered & plan of care reviewed with Magy PETERSON.
--- NOTE | 2019-02-26 06:26 | NUR ---
Patient in room PCU 3010. I have received report from Leonor and had the opportunity to ask questions and assume patient care.
[2019-02-26] MEDS ORDERED: furosemide 40mg/4ml inj IV ONE (07:40)
[2019-02-26] MEDS: docusate sod 100mg capsule PO SCH (07:48)
[2019-02-26] MEDS: levoFLOXACIN-Levaquin 500mg/D5 100 ML IV SCH (07:48)
[2019-02-26] MEDS: pantoprazole 40mg Tablet.DR PO SCH (07:48)
[2019-02-26] MEDS: levoTHYROXINE 25mcg tablet PO SCH (07:48)
[2019-02-26] MEDS: multivitamins, therapeutics tablet PO SCH (07:49)
[2019-02-26] MEDS: lactobacillus rhamnosus 10,000 MMU CELLS/CAPSULE PO SCH ×2 (07:49→20:51)
[2019-02-26] MEDS: buPROPion SR 150mg tablet PO SCH ×2 (07:49→20:46)
[2019-02-26] MEDS: duloxetine 30mg CAPSULE.DR PO SCH (07:49)
[2019-02-26] MEDS: oxyCODONE/APAP 10/325mg tablet PO SCH ×3 (07:50→20:46)
[2019-02-26] MEDS: methylnaltrexone br 12mg/0.6ml inj***SubQ only SQ SCH (07:51)
[2019-02-26] MEDS: NUT.TX.IMP.RENAL FXN,LAC-REDUC (Nepro) 237 ML VANILLA PO SCH ×3 (08:00→18:48)
--- NOTE | 2019-02-26 09:10 | NUR ---
Upon assessment this AM the patient is pale, shakey and has increased WORK. Spo02 93%. Patient has a non productive moist cough. Last PBNP elevated on 02/21/19, potassium 5.3 today, noted oral thrush and diminshed bowel sounds during assessment. Dr. Vasques notified and at bedside. New orders implemented to tx thrush and restart patient on dobutamine. Lasix 40 mg IVP administered as well. CXR pending.
[2019-02-26] MEDS: DOBUTamine-DoBUTrex 500mg/D5W 250 ML IV SCH (09:35)
[2019-02-26] MEDS: clotrimazole 10mg troche MM SCH ×4 (12:46→22:24)
--- NOTE | 2019-02-26 13:29 | NUR ---
Patient is doing much better, patients WOB is much improved, skin in pink and patient is tolerating dobutamine well. Patient also had a large bowel movement after laxative administration. Patient worked with PT and ambulated to the nurses station without any distress. Will continue to monitor.
--- NOTE | 2019-02-26 13:58 | NUR ---
reassessment: Pt PO remains low 0-25% avg meals 6 days now. Constipation has now resolved today per RN receiving multiple routine bowel care meds. Pt also noted to have oral thrush w/ sores per RN but was able to feed some yogurt to pt today. Still not meeting needs; SMITA d/w RN regarding MD verification of ONS so can start sending on trays given liquids may be better tolerated. AOx2 currently w/ mild edema present. At this time pt qualifies for non-severe malnutrition r/t low PO hx, mild edema, and mild weakness. MD notified. Not appropriate for verbal ed at this time. Will continue to monitor. Recommendation: 1. Continue renal/carb controlled diet; encourage PO w/ ALOC 2. Nepro TIDWM; pending MD verification prior to sending on trays 3. routine bowel care 4. Weekly wt Addendum: 02/26/19 at [address] Amended: Links added.
--- NOTE | 2019-02-26 17:14 | NUR ---
Nutritonal supplement not administered because order was implemented today but not show up on EMR until today as a new order. Patient has yet to receive supplement but should come out on her tray this evening for dinner.
--- NOTE | 2019-02-26 18:13 | NUR ---
Problems reprioritized. Patient report given, questions answered & plan of care reviewed with Geovany.
--- NOTE | 2019-02-26 18:29 | NUR ---
Patient in room PCU 3010. I have received report from Julieta PETERSON and had the opportunity to ask questions and assume patient care.
[2019-02-26] MEDS: polyethylene glycol 3350 17gm powd pack PO SCH (20:45)
[2019-02-26] MEDS: famotidine 20mg tablet PO SCH (20:46)
[2019-02-26] MEDS: insulin glargine (Lantus) pen - multi-dose SQ SCH (21:00)
[2019-02-27] VITALS (13 sets, daily range): BP systolic 127–146; BP diastolic 67–81
[2019-02-27] MEDS: methylPREDNISolone sod succ/PF 40mg inj. IV SCH ×4 (01:54→20:55)
[2019-02-27] MEDS: normal saline 1000ml 1,000 ML IV SCH (03:56)
[2019-02-27 05:07] LABS: BASOPHILS % (AUTO) 0.1 % (0-1); EOSINOPHILS % (AUTO) 0 % (0-6); HEMATOCRIT 26.9 % (35.0-45.0); HEMOGLOBIN 8.6 g/dl (12.0-16.0); LYMPHOCYTES # (AUTO) 0.4 X10'3 (1.1-4.8); LYMPHOCYTES % (AUTO) 2.1 % (21-51); MEAN CORPUSCULAR HEMOGLOBIN 26.8 PG (27.0-31.0); MEAN CORPUSCULAR HGB CONC 31.9 g/dL (33.0-36.5); MONOCYTES # (AUTO) 0.4 X10'3 (0-0.9); MONOCYTES % (AUTO) 2.1 % (2-12); NEUTROPHILS # (AUTO) 17.4 X10'3 (1.8-7.7); NEUTROPHILS % (AUTO) 95.7 % (42-75); PLATELET COUNT 99 X10'3 (140-440); RED CELL DISTRIBUTION WIDTH 16.4 % (11.5-14.5); WHITE BLOOD COUNT 18.1 X10'3 (4.5-11.0)
[2019-02-27 05:20] LABS: PARTIAL THROMBOPLASTIN TIME 35 SECONDS (22-32)
[2019-02-27 05:22] LABS: ALANINE AMINOTRANSFERASE 706 U/L (12-78); ALBUMIN 2.7 G/DL (3.4-5.0); ALKALINE PHOSPHATASE 139 IU/L (46-116); ANION GAP 6 (8-16); ASPARTATE AMINO TRANSFERASE 94 U/L (10-37); BILIRUBIN,TOTAL 3.6 MG/DL (0.1-1.0); BLOOD UREA NITROGEN 60 MG/DL (7-18); BUN/CREATININE RATIO 45.8 (6.6-38.0); CALCIUM 8.4 MG/DL (8.5-10.1); CHLORIDE 101 MMOL/L (99-107); CREATININE 1.31 MG/DL (0.40-0.90); GLUCOSE 145 MG/DL (70-104); MAGNESIUM 1.7 MG/DL (1.5-2.4); PHOSPHORUS 3.5 MG/DL (2.3-4.5); POTASSIUM 4.4 MMOL/L (3.5-5.1); SODIUM 137 MMOL/L (135-145); TOTAL CARBON DIOXIDE 29.7 MMOL/L (24-32); TOTAL PROTEIN 5.4 G/DL (6.4-8.2); eGFR 41 ML/MIN
--- NOTE | 2019-02-27 06:23 | NUR ---
Problems reprioritized. Patient report given, questions answered & plan of care reviewed with Sherri PETERSON.
--- NOTE | 2019-02-27 06:29 | NUR ---
Patient in room PCU 3010. I have received report from KRISTEN Mathew and had the opportunity to ask questions and assume patient care.
[2019-02-27] MEDS ORDERED: VANCOMYCIN LEVEL IV ONE (07:30)
[2019-02-27] MEDS: pantoprazole 40mg Tablet.DR PO SCH (07:35)
[2019-02-27] MEDS: levoTHYROXINE 25mcg tablet PO SCH (07:35)
[2019-02-27] MEDS: lactobacillus rhamnosus 10,000 MMU CELLS/CAPSULE PO SCH ×2 (07:36→20:55)
[2019-02-27] MEDS: multivitamins, therapeutics tablet PO SCH (07:36)
[2019-02-27] MEDS: buPROPion SR 150mg tablet PO SCH ×2 (07:36→20:55)
[2019-02-27] MEDS: clotrimazole 10mg troche MM SCH ×5 (07:36→22:09)
[2019-02-27] MEDS: docusate sod 100mg capsule PO SCH (07:36)
[2019-02-27] MEDS: duloxetine 30mg CAPSULE.DR PO SCH (07:36)
[2019-02-27] MEDS: oxyCODONE/APAP 10/325mg tablet PO SCH ×3 (07:38→20:55)
[2019-02-27] MEDS: NUT.TX.IMP.RENAL FXN,LAC-REDUC (Nepro) 237 ML VANILLA PO SCH ×3 (07:52→17:53)
[2019-02-27 08:40] LABS: ANISOCYTOSIS 1+
[2019-02-27 08:41] LABS: SPHEROCYTES FEW
[2019-02-27 08:44] LABS: PLATELET ESTIMATE DECREASED
[2019-02-27 08:49] LABS: ELLIPTOCYTES FEW; HYPOCHROMASIA 2+; POLYCHROMASIA 1+
[2019-02-27] MEDS: levoFLOXACIN 250mg tablet PO SCH (12:43)
[2019-02-27] MEDS: DOBUTamine-DoBUTrex 500mg/D5W 250 ML IV SCH (16:19)
--- NOTE | 2019-02-27 18:16 | NUR ---
Problems reprioritized. Patient report given, questions answered & plan of care reviewed with KRISTEN Mathew.
--- NOTE | 2019-02-27 18:21 | NUR ---
Patient in room PCU 3010. I have received report from Sherri PETERSON and had the opportunity to ask questions and assume patient care.
[2019-02-27] MEDS: famotidine 20mg tablet PO SCH (20:55)
[2019-02-27] MEDS: polyethylene glycol 3350 17gm powd pack PO SCH (20:56)
[2019-02-27] MEDS: insulin glargine (Lantus) pen - multi-dose SQ SCH (21:00)
[2019-02-28] VITALS (9 sets, daily range): BP systolic 135–151; BP diastolic 41–104
[2019-02-28] MEDS: methylPREDNISolone sod succ/PF 40mg inj. IV SCH ×2 (01:33→08:33)
[2019-02-28 04:05] LABS: BASOPHILS % (AUTO) 0 % (0-1); EOSINOPHILS % (AUTO) 0 % (0-6); HEMATOCRIT 25.8 % (35.0-45.0); HEMOGLOBIN 8.2 g/dl (12.0-16.0); LYMPHOCYTES # (AUTO) 0.2 X10'3 (1.1-4.8); LYMPHOCYTES % (AUTO) 1.4 % (21-51); MEAN CORPUSCULAR HEMOGLOBIN 26.7 PG (27.0-31.0); MEAN CORPUSCULAR HGB CONC 31.7 g/dL (33.0-36.5); MEAN CORPUSCULAR VOLUME 84.2 FL (78-98); MEAN PLATELET VOLUME 8.9 FL (7.4-10.4); MONOCYTES # (AUTO) 0.3 X10'3 (0-0.9); MONOCYTES % (AUTO) 1.6 % (2-12); NEUTROPHILS # (AUTO) 16.9 X10'3 (1.8-7.7); PLATELET COUNT 118 X10'3 (140-440); RED BLOOD COUNT 3.06 X10'6 (4.20-5.60); RED CELL DISTRIBUTION WIDTH 16.8 % (11.5-14.5); WHITE BLOOD COUNT 17.4 X10'3 (4.5-11.0)
[2019-02-28 04:14] LABS: PARTIAL THROMBOPLASTIN TIME 35 SECONDS (22-32)
[2019-02-28 04:17] LABS: ALANINE AMINOTRANSFERASE 558 U/L (12-78); ALBUMIN 2.5 G/DL (3.4-5.0); ALBUMIN/GLOBULIN RATIO 0.9 (1.1-1.5); ALKALINE PHOSPHATASE 137 IU/L (46-116); ANION GAP 6 (8-16); ASPARTATE AMINO TRANSFERASE 66 U/L (10-37); BILIRUBIN,TOTAL 2.9 MG/DL (0.1-1.0); BLOOD UREA NITROGEN 44 MG/DL (7-18); BUN/CREATININE RATIO 41.5 (6.6-38.0); CALCIUM 8.1 MG/DL (8.5-10.1); CHLORIDE 101 MMOL/L (99-107); CREATININE 1.06 MG/DL (0.40-0.90); GLUCOSE 178 MG/DL (70-104); MAGNESIUM 1.5 MG/DL (1.5-2.4); POTASSIUM 4.2 MMOL/L (3.5-5.1); SODIUM 136 MMOL/L (135-145); TOTAL CARBON DIOXIDE 29.4 MMOL/L (24-32); TOTAL PROTEIN 5.2 G/DL (6.4-8.2); eGFR 52 ML/MIN
--- NOTE | 2019-02-28 06:00 | NUR ---
Patient in room PCU 3010. I have received report from Priyanka PETERSON and had the opportunity to ask questions and assume patient care.
--- NOTE | 2019-02-28 06:13 | NUR ---
Problems reprioritized. Patient report given, questions answered & plan of care reviewed with Cassandra PETERSON.
--- NOTE | 2019-02-28 06:21 | NUR ---
[place]ee documentation: I have reviewed and agree with all interventions, assessments performed and documented by Randy PETERSON.
[2019-02-28] MEDS: clotrimazole 10mg troche MM SCH ×5 (07:22→21:05)
[2019-02-28] MEDS: docusate sod 100mg capsule PO SCH (08:00)
[2019-02-28] MEDS: oxyCODONE/APAP 10/325mg tablet PO SCH ×3 (08:32→20:56)
[2019-02-28] MEDS: lactobacillus rhamnosus 10,000 MMU CELLS/CAPSULE PO SCH ×2 (08:32→20:56)
[2019-02-28] MEDS: pantoprazole 40mg Tablet.DR PO SCH (08:33)
[2019-02-28] MEDS: buPROPion SR 150mg tablet PO SCH ×2 (08:34→20:56)
[2019-02-28] MEDS: duloxetine 30mg CAPSULE.DR PO SCH (08:34)
[2019-02-28] MEDS: methylnaltrexone br 12mg/0.6ml inj***SubQ only SQ SCH (08:34)
[2019-02-28] MEDS: multivitamins, therapeutics tablet PO SCH (08:34)
[2019-02-28] MEDS: levoTHYROXINE 25mcg tablet PO SCH (08:34)
[2019-02-28] MEDS: NUT.TX.IMP.RENAL FXN,LAC-REDUC (Nepro) 237 ML VANILLA PO SCH ×3 (08:42→18:15)
[2019-02-28] MEDS: levoFLOXACIN 250mg tablet PO SCH (10:28)
--- NOTE | 2019-02-28 18:16 | NUR ---
Problems reprioritized. Patient report given, questions answered & plan of care reviewed with Priyanka PETERSON.
--- NOTE | 2019-02-28 18:25 | NUR ---
Patient in room PCU 3010. I have received report from Cassandra PETERSON and had the opportunity to ask questions and assume patient care.
[2019-02-28] MEDS: insulin Lispro (HumaLOG) vial - multi-dose SQ SCH (18:37)
[2019-02-28] MEDS: famotidine 20mg tablet PO SCH (20:56)
[2019-02-28] MEDS: furosemide 20MG tablet PO SCH (20:56)
[2019-02-28] MEDS: polyethylene glycol 3350 17gm powd pack PO SCH (20:57)
[2019-02-28] MEDS: insulin glargine (Lantus) pen - multi-dose SQ SCH (21:47)
[2019-03-01] VITALS (9 sets, daily range): BP systolic 137–178; BP diastolic 64–75
[2019-03-01] MEDS: DOBUTamine-DoBUTrex 500mg/D5W 250 ML IV SCH (00:19)
[2019-03-01 04:25] LABS: PARTIAL THROMBOPLASTIN TIME 33 SECONDS (22-32)
[2019-03-01 04:30] LABS: ALANINE AMINOTRANSFERASE 477 U/L (12-78); ALBUMIN 2.4 G/DL (3.4-5.0); ALBUMIN/GLOBULIN RATIO 0.8 (1.1-1.5); ALKALINE PHOSPHATASE 142 IU/L (46-116); ANION GAP 4 (8-16); ASPARTATE AMINO TRANSFERASE 60 U/L (10-37); BILIRUBIN,TOTAL 2.5 MG/DL (0.1-1.0); BLOOD UREA NITROGEN 35 MG/DL (7-18); CHLORIDE 101 MMOL/L (99-107); CREATININE 1.03 MG/DL (0.40-0.90); GLUCOSE 157 MG/DL (70-104); MAGNESIUM 1.4 MG/DL (1.5-2.4); PHOSPHORUS 2.6 MG/DL (2.3-4.5); SODIUM 135 MMOL/L (135-145); TOTAL CARBON DIOXIDE 29.9 MMOL/L (24-32); TOTAL PROTEIN 5.4 G/DL (6.4-8.2); eGFR 54 ML/MIN
[2019-03-01 04:50] LABS: BASOPHILS # (AUTO) 0.1 X10'3 (0-0.2); BASOPHILS % (AUTO) 0.3 % (0-1); EOSINOPHILS % (AUTO) 0 % (0-6); HEMATOCRIT 26.4 % (35.0-45.0); HEMOGLOBIN 8.4 g/dl (12.0-16.0); LYMPHOCYTES # (AUTO) 0.3 X10'3 (1.1-4.8); LYMPHOCYTES % (AUTO) 1.4 % (21-51); MEAN CORPUSCULAR VOLUME 84.5 FL (78-98); MONOCYTES # (AUTO) 0.6 X10'3 (0-0.9); MONOCYTES % (AUTO) 3.2 % (2-12); NEUTROPHILS # (AUTO) 18.3 X10'3 (1.8-7.7); NEUTROPHILS % (AUTO) 95.1 % (42-75); PLATELET COUNT 139 X10'3 (140-440); RED BLOOD COUNT 3.12 X10'6 (4.20-5.60); RED CELL DISTRIBUTION WIDTH 16.8 % (11.5-14.5); WHITE BLOOD COUNT 19.3 X10'3 (4.5-11.0)
--- NOTE | 2019-03-01 06:17 | NUR ---
Problems reprioritized. Patient report given, questions answered & plan of care reviewed with Cassandra PETERSON.
--- NOTE | 2019-03-01 06:18 | NUR ---
[place]ee documentation: I have reviewed and agree with all interventions, assessments performed and documented by Randy PETERSON.
[2019-03-01] MEDS ORDERED: potassium Cl 20 mEq SR tablet PO PRN (06:55)
[2019-03-01] MEDS: duloxetine 30mg CAPSULE.DR PO SCH (07:29)
[2019-03-01] MEDS: lactobacillus rhamnosus 10,000 MMU CELLS/CAPSULE PO SCH ×2 (07:30→20:43)
[2019-03-01] MEDS: magnesium Cl slow-release 64mg tablet PO PRN (07:30)
[2019-03-01] MEDS: multivitamins, therapeutics tablet PO SCH (07:30)
[2019-03-01] MEDS: furosemide 20MG tablet PO SCH ×2 (07:31→20:43)
[2019-03-01] MEDS: pantoprazole 40mg Tablet.DR PO SCH (07:31)
[2019-03-01] MEDS: levoTHYROXINE 25mcg tablet PO SCH (07:31)
[2019-03-01] MEDS: oxyCODONE/APAP 10/325mg tablet PO SCH ×3 (07:31→20:43)
[2019-03-01] MEDS: buPROPion SR 150mg tablet PO SCH ×2 (07:31→20:43)
[2019-03-01] MEDS: clotrimazole 10mg troche MM SCH ×5 (07:32→21:37)
[2019-03-01] MEDS: docusate sod 100mg capsule PO SCH (07:33)
[2019-03-01] MEDS: NUT.TX.IMP.RENAL FXN,LAC-REDUC (Nepro) 237 ML VANILLA PO SCH ×3 (07:43→18:50)
[2019-03-01] MEDS: insulin Lispro (HumaLOG) vial - multi-dose SQ SCH ×2 (10:04→14:06)
[2019-03-01] MEDS: levoFLOXACIN 250mg tablet PO SCH (10:12)
--- NOTE | 2019-03-01 12:39 | NUR ---
Reassessment: Pt s/p BSS 02/[address] recs mech soft grind meat with thin liquids d/t no s/s aspiration. PO intake remains low however slowly improving, previously averaging 0-25% PO intake, now averaging 50% PO intake of meals. Pt now receiving Nepro TID documented with 25% acceptance x 2 and 50% acceptance x 1. Pt continues to be A/O x 2 with episodes of confusion per physical assessment likely contributing to poor PO intake. Documented wt not reliable at this time given dramatic fluctuations with changes of 20-30 kg in 1 day. LBM 02/28. Renal function stable per MD notes. Will continue to follow closely. Recommendation: 1. Continue renal/carb controlled diet; mech soft, grind meat, thin liquids per ST recs 2. encourage PO w/ ALOC 3. Nepro TIDWM 4. routine bowel care 5. Weekly wt Addendum: 03/01/19 at [address] Amended: Links added.
[2019-03-01] MEDS ORDERED: lactulose 20gm/30ml cup PO ONE (15:25)
--- NOTE | 2019-03-01 18:53 | NUR ---
Patient in room PCU 3010. I have received report from Cassandra and had the opportunity to ask questions and assume patient care.
--- NOTE | 2019-03-01 19:15 | NUR ---
Problems reprioritized. Patient report given, questions answered & plan of care reviewed with Servando RN.
[2019-03-01] MEDS: ondansetron/PF 4mg/2ml inj IV PRN (19:20)
[2019-03-01] MEDS: famotidine 20mg tablet PO SCH (20:43)
[2019-03-01] MEDS: polyethylene glycol 3350 17gm powd pack PO SCH (20:43)
[2019-03-01] MEDS: insulin glargine (Lantus) pen - multi-dose SQ SCH (21:39)
[2019-03-02] VITALS (10 sets, daily range): BP systolic 102–151; BP diastolic 70–95
[2019-03-02 04:54] LABS: BASOPHILS % (AUTO) 0.1 % (0-1); EOSINOPHILS % (AUTO) 0.2 % (0-6); LYMPHOCYTES # (AUTO) 0.5 X10'3 (1.1-4.8); LYMPHOCYTES % (AUTO) 2.7 % (21-51); MEAN CORPUSCULAR HGB CONC 32.1 g/dL (33.0-36.5); MEAN CORPUSCULAR VOLUME 84.1 FL (78-98); MEAN PLATELET VOLUME 8.5 FL (7.4-10.4); MONOCYTES # (AUTO) 0.3 X10'3 (0-0.9); MONOCYTES % (AUTO) 1.9 % (2-12); NEUTROPHILS # (AUTO) 16.6 X10'3 (1.8-7.7); NEUTROPHILS % (AUTO) 95.1 % (42-75); PARTIAL THROMBOPLASTIN TIME 35 SECONDS (22-32); PLATELET COUNT 144 X10'3 (140-440); RED BLOOD COUNT 3.33 X10'6 (4.20-5.60); RED CELL DISTRIBUTION WIDTH 16.9 % (11.5-14.5); WHITE BLOOD COUNT 17.4 X10'3 (4.5-11.0)
[2019-03-02 04:58] LABS: ALANINE AMINOTRANSFERASE 349 U/L (12-78); ALBUMIN 2.3 G/DL (3.4-5.0); ALBUMIN/GLOBULIN RATIO 0.8 (1.1-1.5); ALKALINE PHOSPHATASE 131 IU/L (46-116); ANION GAP 4 (8-16); ASPARTATE AMINO TRANSFERASE 56 U/L (10-37); BILIRUBIN,TOTAL 2.8 MG/DL (0.1-1.0); BLOOD UREA NITROGEN 23 MG/DL (7-18); BUN/CREATININE RATIO 25.8 (6.6-38.0); CALCIUM 7.8 MG/DL (8.5-10.1); CHLORIDE 101 MMOL/L (99-107); CREATININE 0.89 MG/DL (0.40-0.90); GLUCOSE 73 MG/DL (70-104); MAGNESIUM 1.2 MG/DL (1.5-2.4); PHOSPHORUS 2.6 MG/DL (2.3-4.5); POTASSIUM 3.2 MMOL/L (3.5-5.1); SODIUM 138 MMOL/L (135-145); TOTAL CARBON DIOXIDE 33.5 MMOL/L (24-32); TOTAL PROTEIN 5.1 G/DL (6.4-8.2); eGFR 64 ML/MIN
[2019-03-02] MEDS: magnesium Cl slow-release 64mg tablet PO PRN (05:13)
[2019-03-02] MEDS: potassium Cl 20 mEq SR tablet PO PRN ×3 (05:13→17:28)
[2019-03-02] MEDS: clotrimazole 10mg troche MM SCH ×5 (06:00→21:19)
--- NOTE | 2019-03-02 06:16 | NUR ---
Problems reprioritized. Patient report given, questions answered & plan of care reviewed with Lalitha PETERSON.
--- NOTE | 2019-03-02 06:20 | NUR ---
Patient in room PCU 3010. I have received report from Servando PETERSON and had the opportunity to ask questions and assume patient care. Patient awake in bed with no complaints at this time. All immediate needs met.
[2019-03-02] MEDS: levoTHYROXINE 25mcg tablet PO SCH ×2 (07:00→09:04)
--- NOTE | 2019-03-02 07:19 | NUR ---
Patient blood sugar 60. Patient prefers juice at this time. Will recheck blood glucose in 15 minutes.
[2019-03-02] MEDS: pantoprazole 40mg Tablet.DR PO SCH (07:30)
[2019-03-02] MEDS: docusate sod 100mg capsule PO SCH ×2 (08:00→13:19)
[2019-03-02] MEDS: NUT.TX.IMP.RENAL FXN,LAC-REDUC (Nepro) 237 ML VANILLA PO SCH ×3 (08:00→18:00)
[2019-03-02] MEDS: methylnaltrexone br 12mg/0.6ml inj***SubQ only SQ SCH (08:58)
[2019-03-02] MEDS: lactobacillus rhamnosus 10,000 MMU CELLS/CAPSULE PO SCH ×3 (08:58→21:03)
[2019-03-02] MEDS: duloxetine 30mg CAPSULE.DR PO SCH ×2 (08:59→13:15)
[2019-03-02] MEDS: multivitamins, therapeutics tablet PO SCH ×2 (08:59→13:19)
[2019-03-02] MEDS: oxyCODONE/APAP 10/325mg tablet PO SCH ×3 (08:59→21:05)
[2019-03-02] MEDS: furosemide 20MG tablet PO SCH ×3 (08:59→21:05)
[2019-03-02] MEDS: buPROPion SR 150mg tablet PO SCH ×3 (09:00→21:03)
[2019-03-02] MEDS: DOBUTamine-DoBUTrex 500mg/D5W 250 ML IV SCH (09:06)
[2019-03-02] MEDS ORDERED: dextrose ORAL solution 15 GM/59 ML bottle PO PRN ×2 (11:40)
[2019-03-02] MEDS ORDERED: dextrose 50%-water 50ml dispensing syringe IV PRN ×2 (11:40)
[2019-03-02] MEDS: levoFLOXACIN 250mg tablet PO SCH (13:14)
--- NOTE | 2019-03-02 18:00 | NUR ---
Patient in room PCU 3010. I have received report from KRISTEN Doty and had the opportunity to ask questions and assume patient care.
--- NOTE | 2019-03-02 18:30 | NUR ---
Problems reprioritized. Patient report given, questions answered & plan of care reviewed with Janet PETERSON. Patient stable at transfer of care.
[2019-03-02] MEDS: polyethylene glycol 3350 17gm powd pack PO SCH (21:00)
[2019-03-02] MEDS ORDERED: insulin glargine (Lantus) pen - multi-dose SQ SCH (21:00)
[2019-03-02] MEDS: famotidine 20mg tablet PO SCH (21:06)
--- NOTE | 2019-03-02 22:22 | NUR ---
Upon turning patient for skin check and skin care, blanchable reddened sacrum and buttock w/blisters were noted and assessed. Pictures taken and placed in patient chart. Will order wound care per protocol.
[2019-03-03] MEDS: clotrimazole 10mg troche MM SCH ×4 (00:15→14:14)
[2019-03-03] MEDS: potassium Cl 20 mEq SR tablet PO PRN (00:16)
[2019-03-03 03:00] VITALS: BP 144/76
[2019-03-03 04:30] LABS: BASOPHILS % (AUTO) 0.2 % (0-1); EOSINOPHILS % (AUTO) 0.1 % (0-6); HEMATOCRIT 29.2 % (35.0-45.0); HEMOGLOBIN 9.4 g/dl (12.0-16.0); LYMPHOCYTES # (AUTO) 0.3 X10'3 (1.1-4.8); LYMPHOCYTES % (AUTO) 1.8 % (21-51); MEAN CORPUSCULAR HEMOGLOBIN 27.1 PG (27.0-31.0); MEAN CORPUSCULAR HGB CONC 32.3 g/dL (33.0-36.5); MEAN PLATELET VOLUME 8.3 FL (7.4-10.4); MONOCYTES # (AUTO) 0.6 X10'3 (0-0.9); MONOCYTES % (AUTO) 3.3 % (2-12); NEUTROPHILS # (AUTO) 17.5 X10'3 (1.8-7.7); NEUTROPHILS % (AUTO) 94.6 % (42-75); PLATELET COUNT 148 X10'3 (140-440); RED BLOOD COUNT 3.47 X10'6 (4.20-5.60); RED CELL DISTRIBUTION WIDTH 16.7 % (11.5-14.5); WHITE BLOOD COUNT 18.6 X10'3 (4.5-11.0)
[2019-03-03 04:36] LABS: PARTIAL THROMBOPLASTIN TIME 36 SECONDS (22-32)
[2019-03-03 04:39] LABS: ALANINE AMINOTRANSFERASE 253 U/L (12-78); ALBUMIN/GLOBULIN RATIO 0.7 (1.1-1.5); ALKALINE PHOSPHATASE 127 IU/L (46-116); ANION GAP 3 (8-16); ASPARTATE AMINO TRANSFERASE 49 U/L (10-37); BILIRUBIN,TOTAL 2.5 MG/DL (0.1-1.0); BLOOD UREA NITROGEN 16 MG/DL (7-18); BUN/CREATININE RATIO 17.8 (6.6-38.0); CALCIUM 7.5 MG/DL (8.5-10.1); CHLORIDE 101 MMOL/L (99-107); GLUCOSE 85 MG/DL (70-104); MAGNESIUM 1.1 MG/DL (1.5-2.4); PHOSPHORUS 2.4 MG/DL (2.3-4.5); POTASSIUM 3.5 MMOL/L (3.5-5.1); SODIUM 137 MMOL/L (135-145); TOTAL CARBON DIOXIDE 33.3 MMOL/L (24-32); TOTAL PROTEIN 4.9 G/DL (6.4-8.2); eGFR 63 ML/MIN
--- NOTE | 2019-03-03 05:31 | NUR ---
Sputum culture has not been obtained due to patient being unable to expectorate sputum sample.
--- NOTE | 2019-03-03 06:15 | NUR ---
Patient in room PCU 3010. I have received report from KRISTEN Gonzales and had the opportunity to ask questions and assume patient care.
--- NOTE | 2019-03-03 06:19 | NUR ---
Problems reprioritized. Patient report given, questions answered & plan of care reviewed with Miri Barillas RN.
[2019-03-03 07:00] VITALS: BP 157/89
[2019-03-03] MEDS: NUT.TX.IMP.RENAL FXN,LAC-REDUC (Nepro) 237 ML VANILLA PO SCH ×2 (08:00→13:00)
[2019-03-03] MEDS ORDERED: LEVO250T58 PO (09:09)
[2019-03-03] MEDS ORDERED: IPRA3AMP9 NEB (09:09)
[2019-03-03] MEDS: duloxetine 30mg CAPSULE.DR PO SCH (09:48)
[2019-03-03] MEDS: pantoprazole 40mg Tablet.DR PO SCH (09:49)
[2019-03-03] MEDS: furosemide 20MG tablet PO SCH ×2 (09:49→19:35)
[2019-03-03] MEDS: multivitamins, therapeutics tablet PO SCH (09:49)
[2019-03-03] MEDS: oxyCODONE/APAP 10/325mg tablet PO SCH ×3 (09:49→19:35)
[2019-03-03] MEDS: magnesium Cl slow-release 64mg tablet PO PRN (09:50)
[2019-03-03] MEDS: buPROPion SR 150mg tablet PO SCH ×2 (09:50→19:35)
[2019-03-03] MEDS: lactobacillus rhamnosus 10,000 MMU CELLS/CAPSULE PO SCH (09:50)
[2019-03-03] MEDS: docusate sod 100mg capsule PO SCH (09:50)
[2019-03-03] MEDS: famotidine 20mg tablet PO SCH (09:50)
[2019-03-03] MEDS: levoTHYROXINE 25mcg tablet PO SCH (09:50)
[2019-03-03 11:00] VITALS: BP 124/93
[2019-03-03] MEDS: levoFLOXACIN 250mg tablet PO SCH (12:54)
[2019-03-03] MEDS: DOBUTamine-DoBUTrex 500mg/D5W 250 ML IV SCH (14:35)
--- NOTE | 2019-03-03 16:03 | NUR ---
Spoke with Dr. Vasques on the phone regarding patients home med list. Per Dr. Vasques, patient to continue all home medications post discharge.
--- NOTE | 2019-03-03 18:36 | NUR ---
Problems reprioritized. Patient report given, questions answered & plan of care reviewed with KRISTEN Gonzales.
--- NOTE | 2019-03-03 18:40 | NUR ---
Patient in room PCU 3010. I have received report from KRISTEN Chery and had the opportunity to ask questions and assume patient care.
--- NOTE | 2019-03-03 22:11 | NUR ---
Patient discharged at approximately 2014. Devora Sena, LUIS escorted patient out via wheelchair with all belongings sent with patient. Patient did have to come back to hospital to retrieve patient belongings from safe in which were obtained by patient and son and sent home with them. Patient PICC line removed in tach. Patient taken off mobile. Patient son and left in personal vehicle. All discharge instructions explained, new prescription sent home with patient,
== END 2019-03-03 21:00 | disposition home or self-care (01) | DRG 720 ==
LOC: ER 06:18 → ED HOLD 09:52 → ICU 2S 13:18 → PCU 3S 02-23 14:35
PROVIDERS: ADMIT Internal Medicine Critical Care Medicine; ATTEND Internal Medicine Critical Care Medicine
PROC: 5A09357 Assistance with Respiratory Ventilation, Less than 24 Consecutive Hours, Continuous Positive Airway Pressure (ICD-10-PCS; principal; 2019-02-20)
PROC: 02HV33Z Insertion of Infusion Device into Superior Vena Cava, Percutaneous Approach (ICD-10-PCS; 2019-02-20)
PROC: 02HV33Z Insertion of Infusion Device into Superior Vena Cava, Percutaneous Approach (ICD-10-PCS; 2019-02-21)
PROC: B548ZZA Ultrasonography of Superior Vena Cava, Guidance (ICD-10-PCS; 2019-02-21)
DX: A40.9 Streptococcal sepsis, unspecified (principal); K72.00 Acute and subacute hepatic failure without coma; R65.21 Severe sepsis with septic shock; I13.0 Hypertensive heart and chronic kidney disease with heart failure and stage 1 through stage 4 chronic kidney disease, or unspecified chronic kidney disease; R57.0 Cardiogenic shock; N17.9 Acute kidney failure, unspecified; J18.9 Pneumonia, unspecified organism; I50.9 Heart failure, unspecified; B37.0 Candidal stomatitis; E11.22 Type 2 diabetes mellitus with diabetic chronic kidney disease; N18.9 Chronic kidney disease, unspecified; M62.82 Rhabdomyolysis; E87.5 Hyperkalemia; E78.00 Pure hypercholesterolemia, unspecified; I48.91 Unspecified atrial fibrillation; Z79.01 Long term (current) use of anticoagulants; E87.6 Hypokalemia
CPT/HCPCS: 36415; 36556; 36569; 36600; 70450; 71045; 74018; 74176; 76700; 76937; 80053; 80202; 80329; 81001; 82140; 82550; 82570; 82803; 82948; 83036; 83605; 83690; 83735; 83880; 84100; 84132; 84145; 84156; 84439; 84443; 84484; 84540; 85018; 85025; 85610; 85730; 87040; 87077; 87081; 87186; 92508; 92616; 93005; 93306; 93308; 94640; 94660; 94760; 96374; 96375; 97110; 97116; 97161; 97530; 97535; 99291; C9113; G0378; J0610; J0692; J1250; J1815; J1940; J1956; J2212; J2270; J2405; J2543; J2920; J3370; J3480; J7030